=== PATIENT | female | born 1965 | race Caucasian/White ===

== ENCOUNTER 2024-06-14 08:58 | Outpatient (REF) | payer MEDICAID, SELFPAY ==
--- OUTSIDE RECORDS SUMMARY | 2024-06-14 09:37 | XMS_ITS | Clinical Summary ---
Author Organization [employer] Address [address] [facility] [address] [place] [address] Care Team Providers Care Horticulture Superintendent Name Role Phone Corina Perez MD Primary Care Provider [phone]- [phone] Allergies Active Allergy Reactions Criticality Noted Date Comments Prednisone 06/07/2024 hypotension Active Problems Problem Noted Date Diagnosed Date Other specified health status 06/07/2024 Overview (06/07/2024): -next comprehensive annual evaluation due after -eye care facilitated by -dental home encouraged 06/07/24 -josesito care proxy Assessment & Plan (06/07/2024 2:00 PM EDT): -next comprehensive annual evaluation due after -eye care facilitated by -dental home encouraged 06/07/24 -josesito care proxy Colon cancer screening 06/07/2024 Overview (06/07/2024): Moved from [place]. Had all medical care done there. Pt will bring records of previous colonoscopy. Assessment & Plan (06/07/2024 1:35 PM EDT): Moved from [place]. Had all medical care done there. Pt will bring records of previous colonoscopy. Breast cancer screening by mammogram 06/07/2024 Overview (06/07/2024): Moved from [place]. Had all medical care done there. Pt will bring records of previous mammogram's. -ordered updated mammogram today 06/07/24 Assessment & Plan (06/07/2024 1:36 PM EDT): Moved from [place]. Had all medical care done there. Pt will bring records of previous mammogram's. -ordered updated mammogram today 06/07/24 History of kidney stones 06/07/2024 Overview (06/07/2024): Reports 8 months ago she had a renal crisis and had a kidney stone removed at hospital in [place]. She has hx of kidney stones and another stone she had removed 10 years ago in [place]. Assessment & Plan (06/07/2024 1:46 PM EDT): Reports 8 months ago she had a renal crisis and had a kidney stone removed at hospital in [place]. She has hx of kidney stones and another stone she had removed 10 years ago in [place]. Papanicolaou smear for cervical cancer screening 06/07/2024 Overview (06/07/2024): Moved from [place]. Had all medical care done there. Pt will bring records of previous PAP smears. -will schedule for upcoming, updated PAP smear on 08/10/24 Assessment & Plan (06/07/2024 1:50 PM EDT): Moved from [place]. Had all medical care done there. Pt will bring records of previous PAP smears. -will schedule for upcoming, updated PAP smear on 08/10/24 Class 1 obesity due to exces s calories with body mass index (BMI) of 30.0 to 30.9 in adult 06/07/2024 Overview (06/07/2024): Pt moved from [place]. First time seeing a doctor in the [place]. -Ordered routine labs 06/07/24 Assessment & Plan (06/07/2024 1:45 PM EDT): Pt moved from [place]. First time seeing a doctor in the [place]. -Ordered routine labs 06/07/24 Dietary counseling 06/07/2024 Assessment & Plan (06/07/2024 1:46 PM EDT): Exercise Recommendations: At least 150 minutes of moderate-intensity physical activity per week, or an equivalent combination of moderate- and vigorous-intensity activity. Exercise counseling 06/07/2024 Assessment & Plan (06/07/2024 1:46 PM EDT): Dietary Recommendations: Fruits, vegetables, whole grains, protein foods, and fat-free or low-fat dairy products are healthy choices. Eat different types of protein foods in your diet. This can include seafood, lean meats, poultry, beans, peas, lentils, nuts, seeds, soy products, and eggs. Limit foods and beverages higher in added sugars, saturated fat, and sodium. Encounters Date Type Department Care Team Description 06/08/2024 Telephone [facility] [address] [place] [id number] Corina Perez MD 06/07/2024 1:20 PM EDT Office Visit [facility] [address] [place] [id number] Corina Perez MD History of kidney stones (Primary Dx); Colon cancer screening; Breast cancer screening by mammogram; Papanicolaou smear for cervical cancer screening; Class 1 obesity due to excess calories with body mass index (BMI) of 30.0 to 30.9 in adult, unspecified whether serious comorbidity present; Dietary counseling; Exercise counseling; Routine screening for STI (sexually transmitted infection); Other specified health status 06/07/2024 Telephone [facility] [address] [place] [id number] Farzaneh Alatorre RN EMR search- [facility] OFF[facility] 06/07/2024 Travel from Last 3 Months Social History Tobacco Use Types Packs/Day Years Used Date Smoking Tobacco: Never Passive Smoke Exposure: Never Smokeless Tobacco: Never Tobacco Cessation:Counseling Given: Not Answered Comments Unknown Sex and Gender Information Value Date Recorded Sex Assigned at Female 06/07/2024 12:55 PM EDT Legal Sex Female 12:39 PM EDT Gender Identity Female 06/07/2024 12:55 PM EDT Sexual Orientation Straight 06/07/2024 12 :55 PM EDT Last Filed Vital Signs Vital Sign Reading Time Taken Comments Blood Pressure 134/88 06/07/2024 1:01 PM EDT Pulse 76 06/07/2024 1:01 PM EDT Temperature 36.7 ??C (98 ??F) 06/07/2024 1:01 PM EDT Respiratory Rate 16 06/07/2024 1:01 PM EDT Oxygen Saturation - - Inhaled Oxygen Concentration - - Weight 80.3 kg (177 lb) 06/07/2024 1:01 PM EDT Height 162 cm (5' 3.78 ) 06/07/2024 1:01 PM EDT Body Mass Index 30.59 06/07/2024 1:01 PM EDT Plan of Treatment Upcoming Encounters Date Type Department Care Team (Late st Contact Info) Description 08/10/2024 11:00 AM EDT Procedure Visit [facility] [address] [place], [place] [phone] Corina Perez MD [address] [place], [place] [phone] Health Maintenance Due Date Last Done Comments CT Colonography 1964 Colonoscopy 1964 Colorectal Cancer Screening 1964 Depression Screening 1964 FIT DNA/Cologuard 1964 FIT 1964 FOBT 1964 HIV Screening 1964 Lipid Panel 1964 SDOH Screening 1964 Sigmoidoscopy 1964 Alcohol/Substance Use Screening 1976 Hepatitis C Screening 1982 DTaP/Tdap/Td Vaccines (1 - Tdap) 12/09/1983 Hepatitis B Vaccines (1 of 3 - 19+ 3-dose series) 12/09/1983 Pap Smear 1985 Cervical Cancer Screening 1994 HPV/Cotest 1994 Pneumococcal Vaccine: 50+ Years (1 of 1 - PCV) 2014 Zoster Vaccines (1 of 2) 2014 COVID-19 Vaccine ( - 2023-2 5 season) 2023 Influenza Vaccine (#1) 2023 Tobacco Screening 06/07/2025 06/07/2024 Mammogram 06/07/2026 06/07/2024, 04/23/2021 RSV Patients and Patients Aged 60 years or older (1 - 1-dose 75+ series) 12/09/2039 HIB Vaccines Aged Out No longer eligi ble based on patient's age to complete this topic HPV Vaccines Aged Out No longer eligi ble based on patient's age to complete this topic Hepatitis A Vaccines Aged Out No long er eligible based on patient's age to complete this topic IPV Vaccines Aged Out No longer eligi ble based on patient's age to complete this topic Meningococcal Vaccine Aged Out No radha tiffanie eligible based on patient's age to complete this topic RSV under 20 months Aged Out No longe r eligible based on patient's age to complete this topic Rotavirus Vaccines Aged Out No longer eligible based on patient's age to complete this topic Procedures Procedure Name Priority Date/Time Associated Diagnosis Comments POCT URINALYSIS DIPSTICK Routine 06/07/2024 2:19 PM EDT History of kidney stones BI MAMMOGRAM SCREENING TOMOSYNTHESIS BILATERAL Routine 06/07/2024 Breast cancer screening by mammogram from Last 3 Months Results * POCT urinalysis dipstick manually resulted (06/07/2024 2:19 PM EDT) Color, UA Yellow Clarity, UA Cloudy Glucose, UA Negative Bilirubin, UA Negative Ketones, UA Negative Spec Grav, UA 1.020 Blood, UA Negative Negative, None Detected pH, UA 6.0 Protein, UA Negative Urobilinogen, UA 0.2 Leukocytes, UA Trace Negative, Rare, Trace Nitrite, UA Negative Negative, None Detected Appearance, UA yellow QC Media Lot # [id number] Lot# Expiration Date , Urine 06/07/2024 2:19 PM EDT us Corina Perez MD POINT OF CARE TEST ENTER/E DIT ORDERABLES Final Result * BI Mammogram Screening Tomosynthesis Bilateral (06/07/2024) Anatomical Region Laterality Modality Breast Bilateral Mammography us Corina Perez MD IMG BI PROCEDURES Final Re sult from Last 3 Months Insurance A SARAH Nicholas [id number] [employer] HSN FULL Care Teams Horticulture Superintendent Relationship Specialty Start Date End Date Corina Perez MD [address] [place] [id number] PCP - General Family Medicine 06/07/24
[2024-06-14 11:38] LABS: MANUAL DIFF FLAG NO
[2024-06-14 12:04] LABS: Basophils Percent Auto 0.4 % (0-2); Eosinophils Absolute Auto 0.2 X10*3/uL (0.0-0.4); Eosinophils Percent Auto 2.8 % (0-4); Hematocrit 44.8 % (37.0-47.0); Hemoglobin 14.1 g/dl (12.0-16.0); Imm Gran Abs Auto 0.01 X10*3/uL (0.00-0.03); Imm Gran Pct Auto 0.1 % (0.0-0.4); Lymphocytes Absolute Auto 3.4 X10*3/uL (1.2-4.9); Mean Corpuscular HGB Conc 31.5 g/dl (31.0-35.0); Mean Corpuscular Hemoglobin 28.8 pg (27.0-33.0); Mean Corpuscular Volume 91.6 fL (80.0-98.0); Mean Platelet Volume 11.4 fL (9.4-12.3); Monocytes Absolute Auto 0.4 X10*3/uL (0.1-1.2); Monocytes Percent Auto 5.8 % (2-11); Neutrophils Absolute Auto 3.2 x10*3/uL (2.0-8.3); Neutrophils Percent Auto 43.9 % (45-73); Platelet Count 160 X10*3/uL (160-400); Red Blood Count 4.89 X10*6/uL (4.20-5.50); White Blood Count 7.2 X10*3/uL (4.8-10.8)
[2024-06-14 12:12] LABS: Alanine Aminotransferase 19 U/L (0-31); Albumin Level 4.4 g/dL (3.5-5.0); Alkaline Phosphatase 104 U/L (39-117); Anion Gap 12 (12-20); Aspartate Amino Transferase 26 U/L (5-31); Bilirubin Direct 0.2 mg/dL (0.0-0.5); Bilirubin Total 0.5 mg/dL (0.0-1.0); Blood Urea Nitrogen 26 mg/dL (9-16); Calcium 9.7 mg/dL (8.4-10.2); Carbon Dioxide 29 mmol/L (22-29); Chloride 108 mmol/L (96-108); Cholesterol 229 mg/dL (<200); Estimated Glomerular Filt Rate > 60; Glucose Random 95 mg/dL (60-115); HDL Cholesterol 56 mg/dL (>40); LDL Cholesterol Calculated 149 mg/dL (<100); Potassium 5.3 mmol/L (3.3-5.1); Sodium 144 mmol/L (135-145); Total Protein 7.4 g/dL (6.5-8.0); Triglycerides 121 mg/dL (<150)
[2024-06-14 12:20] LABS: TSH reflex Free T4 0.96 uIU/mL (0.32-4.0); Vitamin D 25-OH Total 42.9 ng/mL (>30)
[2024-06-14 12:26] LABS: Syphilis Screen Nonreactive (Nonreactive)
[2024-06-14 12:27] LABS: HIV AB/AG Nonreactive (Nonreactive); HIV Num 1 0.06 S/CO (0.00-0.99); ~HepC Num1 0.15 S/CO (0.00-0.79); ~Hepatitis C Antibody Nonreactive (Nonreactive)
== END 2024-06-14 08:59 | disposition home or self-care (01) ==
LOC: HO.HHCL 08:58
PROVIDERS: Visit Provider Family Medicine
DX: E66.811 Obesity, class 1 (principal); Z71.3 Dietary counseling and surveillance; E66.09 Other obesity due to excess calories; Z68.30 Body mass index [BMI] 30.0-30.9, adult; Z11.3 Encounter for screening for infections with a predominantly sexual mode of transmission
CPT/HCPCS: 36415; 80048; 80061; 80076; 82306; 84443; 85025; 86780; 86803; 87389

== ENCOUNTER 2024-07-26 09:19 | Outpatient (REF) | payer MEDICAID, SELFPAY ==
--- OUTSIDE RECORDS SUMMARY | 2024-07-26 09:33 | XMS_ITS | Encounter Summary ---
Author Organization [employer] Address [address] [facility] [address]t [place] [address] Care Team Providers Care Manager Personnel Selection Name Role Phone Corina Perez MD Primary Care Provider +1- [phone] Reason for Visit * Reason Onset Date Comments Results 06/14/2024 Encounter Details Date Type Department Care Team (Late st Contact Info) Description 06/14/2024 Telephone [facility] [address] [place], [place] [phone] Corina Perez MD [address] [place], [place] [phone] Results Social History Tobacco Use Types Packs/Day Years Used Date Smoking Tobacco: Never Passive Smoke Exposure: Never Smokeless Tobacco: Never Comments Unknown Sex and Gender Information Value Date Recorded Sex Assigned at Female 06/07/2024 12:55 PM EDT Legal Sex Female 12:39 PM EDT Gender Identity Female 06/07/2024 12:55 PM EDT Sexual Orientation Straight 06/07/2024 12 :55 PM EDT documented as of this encounter Miscellaneous Notes * Addendum Note - Brittnee Montana RN - 07/25/2024 10:00 AM EDTAddended by: BRITTNEE MONTANA on: 07/25/2024 10:00 AM Modules accepted: Orders * Telephone Encounter - Olivia Muse RN - 06/14/2024 3:51 PM EDT TC placed to pt to inform of message below regarding slightly elevated potassium and cholesterol. 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 Pt was able to state those instructions back and will also work on lifestyle recommendations to help lower cholesterol. Pt to have repeat labs done in six weeks and advised that they are to be done fasting. PCP MESSAGE Please let Ms. Logan know her labs were good but potassium was a bit high and cholesterol a bithigh. I sent med to take for 2 days to bring potassium down. Advise low chol diet . We can recheck potassium and chol in 6 weeks fasting. Thank you. Pt speaks Cypriot. * Telephone Encounter - Corina Perez MD - 06/14/2024 3:12 PM EDT Please let Ms. Logan know her labs were good but potassium was a bit high and cholesterol a bithigh. I sent med to take for 2 days to bring potassium down. Advise low chol diet . We can recheck potassium and chol in 6 weeks fasting. Thank you. Pt speaks Cypriot. documented in this encounter Plan of Treatment Upcoming Encounters Date Type Department Care Team (Late st Contact Info) Description 08/10/2024 11:00 AM EDT Procedure Visit [facility] [address] [place] [id number] Corina Perez MD [address] [place] [address] Scheduled Orders Name Type Priority Associated Diagnoses Orde r Schedule Lipid Panel, Standard Lab Routine Elevated cholesterol Expected: 07/25/2024 (Approximate), Expires: 07/25/2025 Potassium Lab Routine Hyperkalemia Expected: 07/25/2024, Expires: 07/25/2025 documented as of this encounter Visit Diagnoses Diagnosis Hyperkalemia Hyperpotassemia Elevated cholesterol Pure hypercholesterolemia documented in this encounter Care Teams Manager Personnel Selection Relationship Specialty Start Date End Date Corina Perez MD [address] [place] [id number] PCP - General Family Medicine 06/07/24 documented as of this encounter
--- OUTSIDE RECORDS SUMMARY | 2024-07-26 09:33 | XMS_ITS | Clinical Summary ---
Author Organization [employer] Address [address] [facility] [address] [place] [address] Care Team Providers Care Hand Bookbinder Name Role Phone Corina Perez MD Primary Care Provider [phone] Allergies Active Allergy Reactions Criticality Noted Date Comments Prednisone 06/07/2024 hypotension Medications sodium polystyrene sulfonate (Kayexalate) powderIndications :Hyperkalemia Take 15 grams by mouth daily for two days 30 g 06/14/2024 Active Active Problems Problem Noted Date Diagnosed Date Other specified health status 06/07/2024 Overview (06/07/2024): -next comprehensive annual evaluation due after -eye care facilitated by -dental home encouraged 06/07/24 -josesito care proxy Assessment & Plan (06/07/2024 2:00 PM EDT): -next comprehensive annual evaluation due after -eye care facilitated by -dental home encouraged 06/07/24 -josesito care proxy Colon cancer screening 06/07/2024 Overview (06/07/2024): Moved from [place]. Had all medical care done there. Pt will bring records of previous colonoscopy. Assessment & Plan (06/07/2024 1:35 PM EDT): Moved from [place]. Had all medical care done there. Pt will bring records of previous colonoscopy. Breast cancer screening by mammogram 06/07/2024 Overview (06/07/2024): Moved from [place]. Had all medical care done there. Pt will bring records of previous mammogram's. -ordered updated mammogram today 06/07/24 Assessment & Plan (06/07/2024 1:36 PM EDT): Moved from [place]. Had all medical care done there. Pt will bring records of previous mammogram's. -ordered updated mammogram today 06/07/24 History of kidney stones 06/07/2024 Overview (06/07/2024): Reports 8 months ago she had a renal crisis and had a kidney stone removed at hospital in [place]. She has hx of kidney stones and another stone she had removed 10 years ago in [place]. Assessment & Plan (06/07/2024 1:46 PM EDT): Reports 8 months ago she had a renal crisis and had a kidney stone removed at hospital in [place]. She has hx of kidney stones and another stone she had removed 10 years ago in [place]. Papanicolaou smear for cervical cancer screening 06/07/2024 Overview (06/07/2024): Moved from [place]. Had all medical care done there. Pt will bring records of previous PAP smears. -will schedule for upcoming, updated PAP smear on 08/10/24 Assessment & Plan (06/07/2024 1:50 PM EDT): Moved from [place]. Had all medical care done there. Pt will bring records of previous PAP smears. -will schedule for upcoming, updated PAP smear on 08/10/24 Class 1 obesity due to exces s calories with body mass index (BMI) of 30.0 to 30.9 in adult 06/07/2024 Overview (06/07/2024): Pt moved from [place]. First time seeing a doctor in the [place]. -Ordered routine labs 06/07/24 Assessment & Plan (06/07/2024 1:45 PM EDT): Pt moved from [place]. First time seeing a doctor in the [...] Encounters Date Type Department Care Team Description 06/14/2024 Telephone [facility] [address] [place] [phone] Corina Perez MD Results 06/14/2024 Orders Only [facility] [address] [address] Corina Perez MD Hyperkalemia (Primary Dx) 06/08/2024 Telephone [facility] [address] [place] [phone] Corina Perez MD 06/07/2024 1:20 PM EDT Office Visit [facility] [address] [address] Corina Perez MD History of kidney stones [...] 06/07/2024 Telephone [facility] [address] [place] [phone] Farzaneh Alatorre RN EMR search- [employer] 06/07/2024 Travel from Last 3 Months Social [...] Procedure Visit [facility] [address] [place] [address] Corina Perez MD [address] [place] [address] Health Maintenance Due Date Last Done Comments CT Colonography 1964 Depression Screening 1964 FIT DNA/Cologuard 1964 FIT 1964 FOBT 1964 SDOH Screening 1964 Sigmoidoscopy 1964 Disability Screening 1964 Alcohol/Substance Use Screening 1976 DTaP/Tdap/Td Vaccines (1 - Tdap) 12/09/1983 Hepatitis B Vaccines (1 of 3 - 19+ 3-dose series) 12/09/1983 Pap Smear 1985 Cervical Cancer Screening 1994 HPV/Cotest 1994 Pneumococcal Vaccine: 50+ Years (1 of 1 - PCV) 2014 Zoster Vaccines (1 of 2) 2014 COVID-19 Vaccine (1 - 2023-2 5 season) 2023 Influenza Vaccine (#1) 2023 Tobacco Screening 06/14/2025 06/14/2024 Mammogram 06/07/2026 06/07/2024, 04/23/2021 Colonoscopy 10/29/2027 10/28/2017 Colorectal Cancer Screening 10/29/2027 Lipid Panel 06/14/2029 06/14/2024 RSV Patients and Patients Aged 60 years or older (1 - 1-dose 75+ series) 12/09/2039 HIV Screening Completed 06/14/2024 Hepatitis C Screening Completed 06/14/2024 HIB Vaccines Aged Out No longer eligi [...] patient's age to complete this topic Meningococcal B Vaccine Aged Out No l onger eligible based on patient's age to complete [...] Procedure Name Priority Date/Time Associated Diagnosis Comments HEPATITIS C AB W/REFL TO HCV RNA, QN, PCR Routine 06/14/2024 9:05 AM EDT Routine screening for STI (sexually transmitted infection) SYPHILIS SCREEN Routine 06/14/2024 9:05 AM EDT Routine screening for STI (sexually transmitted infection) HIV 1/2 ANTIGEN/ANTIBODY, FOURTH GENERATION W/RFL Routine 06/14/2024 9:05 AM EDT Routine screening for STI (sexually transmitted infection) VITAMIN D,25-OH,TOTAL,IA Routine 06/14/2024 9:05 AM EDT Dietary counseling CBC WITH AUTO DIFFERENTIAL Routine 06/14/2024 9:05 AM EDT Class 1 obesity due to excess calories with body mass index (BMI) of 30.0 to 30.9 in adult, unspecified whether serious comorbidity present TSH W/REFLEX TO FT4 Routine 06/14/2024 9 :05 AM EDT Class 1 obesity due to excess calories with body mass index (BMI) of 30.0 to 30.9 in adult, unspecified whether serious comorbidity present BASIC METABOLIC PANEL Routine 06/14/2024 9:05 AM EDT Class 1 obesity due to excess calories with body mass index (BMI) of 30.0 to 30.9 in adult, unspecified whether serious comorbidity present LIPID PANEL, STANDARD Routine 06/14/2024 9:05 AM EDT Class 1 obesity due to excess calories with body mass index (BMI) of 30.0 to 30.9 in adult, unspecified whether serious comorbidity present HEPATIC FUNCTION PANEL Routine 9:05 AM EDT Class 1 obesity due to excess calories with body mass index (BMI) of 30.0 to 30.9 in adult, unspecified whether serious comorbidity present POCT URINALYSIS DIPSTICK Routine 06/07/2024 2:19 PM EDT History of kidney stones BI MAMMOGRAM SCREENING TOMOSYNTHESIS BILATERAL Routine 06/07/2024 Breast cancer screening by mammogram HM COLONOSCOPY Routine 10/28/2017 from Last 3 Months or Most Recently Relevant to Health Maintenance Results * Syphilis Screen (06/14/2024 9:05 AM EDT) Syphilis Screen Nonreactive Nonreactive [facility] Blood Venous blood specimen / Unknown 06/14/2024 9:05 AM EDT 06/14/2024 11:34 AM EDT us Corina Perez MD LAB BLOOD ORDERABLES Final Result [facility] [address] [place] [phone] * Vitamin D, 25-Hydroxy, Total, Immunoassay (06/14/2024 9:05 AM EDT) Vitamin D 25-OH Total 42.9 >30 ng/mL [facility] Comment: Health Based Reference Values*< 20 ??ng/mL ??Kckgvtskr84-49 ng/mL ??Insufficient> 30 ??ng/mL ??Sufficient*Uma LIPSCOMB. N Engl J Med. 2007;[id number] is no well-established upper level of normal vitamin Dlevels. Some laboratories use 50 ng/mL as an upper limit ofnormal. However, toxicity is patient-dependent and may occurat any level. Careful correlation with the patient'spresentation is necessary and, if there is concern forvitamin D toxicity, treatment should be consideredirrespective of the serum level.Care must be taken in interpreting Vitamin D results fromdifferent laboratories and methodologies. ??Published datademonstrated that results from patients undergoinghemodialysis may show a negative bias when tested withvarious automated 25-OH vitamin D assays when compared toLC- MS/MS.When testing samples from patients whose predominant form ofVitamin D is Vitamin D2, such as patients receiving VitaminD2 supplementation, results that are subtherapeutic shouldbe confirmed with another method such as LC-MS/MS. Blood 06/14/2024 9:05 AM EDT 06/14/2024 11:34 AM EDT Corina Perez MD LAB BLOOD ORDERABLES Final Result [facility] [address] [place] [phone] * TSH with Reflex to Free T4 (06/14/2024 9:05 AM EDT) TSH reflex Free T4 0.96 0.32 - 4.0 uIU/mL [facility] Blood 06/14/2024 9:05 AM EDT 06/14/2024 11:34 AM EDT us Corina Perez MD LAB BLOOD ORDERABLES Final Result [facility] [address] [place] [phone] * (ABNORMAL) CBC auto differential (06/14/2024 9:05 AM EDT) White Blood Count 7.2 4.8 - 10.8 X10*3/uL [facility] Red Blood Count 4.89 4.20 - 5.50 X10*6/uL [facility] Hemoglobin 14.1 12.0 - 16.0 g/dl [facility] Hematocrit 44.8 37.0 - 47.0 % [facility] Mean Corpuscular Volume 91.6 80.0 - 98.0 fL [facility] Mean Corpuscular Hemoglobin 28.8 27.0 - 33.0 pg [facility] Mean Corpuscular HGB Conc 31.5 31.0 - 35.0 g/dl [facility] Red Cell Distribution Width 13.0 11.0 - 16.0 % [facility] Platelet Count 160 160 - 400 X10*3/uL [facility] Mean Platelet Volume 11.4 9.4 - 12.3 fL [facility] Neutrophils Percent Auto 43.9(L) 45 - 73 % [facility] Imm Gran Pct Auto 0.1 0.0 - 0.4 % [facility] Lymphocytes Percent Auto 47.0(H) 20 - 40 % [facility] Monocytes Percent Auto 5.8 2 - 11 % [facility] Eosinophils Percent Auto 2.8 0 - 4 % [facility] Basophils Percent Auto 0.4 0 - 2 % [facility] NRBC Pct Auto 0.0 0.0 - 0.2 /100WBC [facility] Neutrophils Absolute Auto 3.2 2.0 - 8.3 x10*3/uL [facility] Imm Gran Abs Auto 0.01 0.00 - 0.03 X10*3/uL [facility] Lymphocytes Absolute Auto 3.4 1.2 - 4.9 X10*3/uL [facility] Monocytes Absolute Auto 0.4 0.1 - 1.2 X10*3/uL [facility] Eosinophils Absolute Auto 0.2 0.0 - 0.4 X10*3/uL [facility] Basophils Absolute Auto 0.0 0.0 - 0.2 X10*3/uL [facility] NRBC Abs Auto 0.000 0.0 - 0.012 X10*3/uL [facility] Blood Venous blood specimen / Unknown 06/14/2024 9:05 AM EDT 06/14/2024 11:34 AM EDT Corina Perez MD LAB BLOOD ORDERABLES Final Result Performing Organization Address [facility]/ZIP Co de Phone Number [facility] [address] [place] [phone] * Hepatitis C Antibody with Reflex to HCV, RNA, Quantitative, Real-Time PCR (06/14/2024 9:05 AM EDT) Hepatitis C Antibody Nonreactive Nonreactive [facility] Comment:Antibodies to HCV no t detected; does not exclude early acuteHCV infection. Blood Venous blood specimen / Unknown 06/14/2024 9:05 AM EDT 06/14/2024 11:34 AM EDT Corina Perez MD LAB BLOOD ORDERABLES Final Result Performing Organization Address [facility] Co de Phone Number [facility] [address] [place] [phone] * HIV-1/2 Antigen and Antibodies, Fourth Generation, with Reflexes (06/14/2024 9:05 AM EDT) HIV AB/AG Nonreactive Nonreactive [facility] Comment:HIV-1 p24 Ag and/or HIV-1/HIV-2 Ab not detected.A test result that is nonreactive does not exclude thepossibility of exposure to or infection with HIV-1 and/orHIV-2. Nonreactive results in this assay for individualswith prior exposure to HIV-1 and/or HIV-2 may be due toantigen and antibody levels that are below the limit ofdetection of this assay.The [facility] [employer] HIV Ag/Ab Combo assay result andsupplemental assay results should be interpreted inconjunction with the patient's clinical presentation,history and other laboratory results. If the results areinconsistent with clinical evidence, additional testing issuggested to confirm the result. Blood Venous blood specimen / Unknown 06/14/2024 9:05 AM EDT 06/14/2024 11:34 AM EDT Corina Perez MD LAB BLOOD ORDERABLES Final Result Performing Organization Address [facility] Co de Phone Number [facility] [address] [place] [phone] * Hepatic Function Panel (06/14/2024 9:05 AM EDT) Bilirubin, Total 0.5 0.0 - 1.0 mg/dL [facility] Bilirubin, Direct 0.2 0.0 - 0.5 mg/dL [facility] Aspartate Amino Transferase 26 5 - 31 U/L [facility] Alanine Aminotransferase 19 0 - 31 U/L [facility] Total Protein 7.4 6.5 - 8.0 g/dL [facility] Albumin Level 4.4 3.5 - 5.0 g/dL [facility] Alkaline Phosphatase 104 39 - 117 U/L [facility] Blood Venous blood specimen / Unknown 06/14/2024 9:05 AM EDT 06/14/2024 11:34 AM EDT Corina Perez MD LAB BLOOD ORDERABLES Final Result Performing Organization Address [facility]/ZIP Co de Phone Number [facility] [address] [place] [phone] * (ABNORMAL) Lipid Panel, Standard (06/14/2024 9:05 AM EDT) Triglycerides 121 <150 mg/dL [facility] Comment:Desirable Triglyceri de: less than 150 mg/dLBorderline High Triglyceride 150-199 mg/dLHigh Triglyceride: 200-499 mg/dLVery High Triglyceride: greater than or equal to 5OO mg/dL Cholesterol 229(H) <200 mg/dL [facility] Comment:Desirable Cholestero l: less than 200 mg/dLBorderline High Cholesterol: 200-239 mg/dLHigh Cholesterol: greater than 239 mg/dL LDL Cholesterol Calculated 149(H) <100 mg/dL [facility] Comment:Desirable LDL: less than 100 mg/dLNear Optimal/Above Optimal LDL: 110- 129 mg/dLBorderline High LDL: 130-159 mg/dLHigh LDL: 160-189 mg/dLVery High LDL: greater than or equal to 190 mg/dL HDL Cholesterol 56 >40 mg/dL [facility] Comment:Desirable HDL: great er than 40 mg/dL Note: This HDL assay may give artificially low results in patients with liver disease. Blood Venous blood specimen / Unknown 06/14/2024 9:05 AM EDT 06/14/2024 11:34 AM EDT us Corina Perez MD LAB BLOOD ORDERABLES Final Result [facility] [address] [place] [phone] * (ABNORMAL) Basic Metabolic Panel (06/14/2024 9:05 AM EDT) Sodium 144 135 - 145 mmol/L [facility] Potassium 5.3(H) 3.3 - 5.1 mmol/L [facility] Chloride 108 96 - 108 mmol/L [facility] Carbon Dioxide 29 22 - 29 mmol/L [facility] Anion Gap 12 12 - 20 [facility] Urea Nitrogen (BUN) 26(H) 9 - 16 mg/dL [facility] Creatinine, Serum 0.73 0.5 - 1.4 mg/dL [facility] Estimated Glomerular Filt Rate >60 [facility] Comment:Chronic Kidney Disea se: Estimated GFR < 60 mL/min/[id number] Kidney Disease: Estimated GFR < 15 mL/min/1.73m2 Glucose 95 60 - 115 mg/dL [facility] Calcium 9.7 8.4 - 10.2 mg/dL [facility] Blood Venous blood specimen / Unknown 06/14/2024 9:05 AM EDT 06/14/2024 11:34 AM EDT Corina Perez MD LAB BLOOD ORDERABLES Final Result [facility] [address] [place] [phone] * POCT urinalysis dipstick manually resulted (06/07/2024 [...] Media Lot # [id number] Lot# Expiration Date Urine 06/07/2024 2:19 PM EDT us Corina Perez MD POINT OF CARE TEST ENTER/E DIT ORDERABLES Final Result * BI Mammogram Screening Tomosynthesis Bilateral (06/07/2024) Anatomical Region Laterality Modality Breast Bilateral Mammography us Corina Perez MD IMG BI PROCEDURES Final Re sult * Hm Colonoscopy (10/28/2017) Colonoscopy Normal Normal Comment:Normal in [place], co py in chart under media us Historical Provider HEALTH MAINTENANCE Final Result from Last 3 Months or Most Recently Relevant to Health Maintenance Insurance [employer] F[employer] Care Teams Hand Bookbinder Relationship Specialty Start Date End Date Dillon, MD Corina [address] [place] [phone] PCP - General Family Medicine 06/07/24
[2024-07-26 11:35] LABS: Cholesterol 230 mg/dL (<200); HDL Cholesterol 53 mg/dL (>40); LDL Cholesterol Calculated 151 mg/dL (<100); Potassium 4.6 mmol/L (3.3-5.1); Triglycerides 131 mg/dL (<150)
== END 2024-07-26 09:20 | disposition home or self-care (01) ==
LOC: HO.HHCL 09:19
PROVIDERS: Visit Provider Family Medicine
DX: E78.00 Pure hypercholesterolemia, unspecified (principal); E87.5 Hyperkalemia
CPT/HCPCS: 36415; 80061; 84132

== ENCOUNTER 2024-08-02 14:06 | Outpatient (REF) | payer MEDICAID, SELFPAY ==
--- OUTSIDE RECORDS SUMMARY | 2024-08-02 14:18 | XMS_ITS | Clinical Summary ---
Author Organization [employer] Address [address] [facility] [address] [place] [address] Care Team Providers Care Risk Compliance Manager Name Role Phone Corina Perez MD Primary Care Provider [phone] Allergies Active Allergy Reactions Criticality Noted Date [...] cancer screening 06/07/2024 Overview (06/07/2024): Moved from [place]. Had all medical care done there. Pt will bring records of previous colonoscopy. Assessment & Plan (06/07/2024 1:35 PM EDT): Moved from [place]. Had all medical care done there. Pt will bring records of previous colonoscopy. Breast cancer screening by mammogram 06/07/2024 Overview (06/07/2024): Moved from [place]. Had all medical care done there. Pt will bring records of previous mammogram's. -ordered updated mammogram today 06/07/24 Assessment & Plan (06/07/2024 1:36 PM EDT): Moved from [place]. Had all medical care done there. Pt will bring records of previous mammogram's. -ordered updated mammogram today 06/07/24 History of kidney stones 06/07/2024 Overview (06/07/2024): Reports 8 months ago she had a renal crisis and had a kidney stone removed at hospital in [place]. She has hx of kidney stones and another stone she had removed 10 years ago in [place]. Assessment & Plan (06/07/2024 1:46 PM EDT): Reports 8 months ago she had a renal crisis and had a kidney stone removed at hospital in [place]. She has hx of kidney stones and another stone she had removed 10 years ago in [place]. Papanicolaou smear for cervical cancer screening 06/07/2024 Overview (06/07/2024): Moved from [place]. Had all medical care done there. Pt will bring records of previous PAP smears. -will schedule for upcoming, updated PAP smear on 08/10/24 Assessment & Plan (06/07/2024 1:50 PM EDT): Moved from [place]. Had all medical care done there. Pt will bring records of previous PAP smears. -will schedule for upcoming, updated PAP smear on 08/10/24 Class 1 obesity due to exces s calories with body mass index (BMI) of 30.0 to 30.9 in adult 06/07/2024 Overview (06/07/2024): Pt moved from [place]. First time seeing a doctor in the [place]. -Ordered routine labs 06/07/24 Assessment & Plan (06/07/2024 1:45 PM EDT): Pt moved from [place]. First time seeing a doctor in the [...] Type Department Care Team Description 06/14/2024 Telephone [facility] [address] [place] [phone] Corina Perez MD Results 06/14/2024 Orders Only [facility] [address] [address] Corina Perez MD Hyperkalemia (Primary Dx) 06/08/2024 Telephone [facility] [address] [place] [phone] Corina Perez MD 06/07/2024 1:20 PM EDT Office Visit [facility] [address] [phone] Corina Perez MD History of kidney stones (Primary Dx); Colon cancer screening; Breast cancer screening by mammogram; Papanicolaou smear for cervical cancer screening; Class 1 obesity due to excess calories with body mass index (BMI) of 30.0 to 30.9 in adult, unspecified whether serious comorbidity present; Dietary counseling; Exercise counseling; Routine screening for STI (sexually transmitted infection); Other specified health status 06/07/2024 Telephone [facility] [address] [place] [phone] Farzaneh Alatorre RN EMR search- [employer] 06/07/2024 Travel from Last 3 Months Social [...] Description 08/10/2024 11:00 AM EDT Procedure Visit [facility] [address] [place] [address] Corina Perez MD [address] [place] [address] Health Maintenance Due Date Last Done Comments [...] 10/28/2017 Colorectal Cancer Screening 10/29/2027 Lipid Panel 07/26/2029 07/26/2024, 06/14/2024 RSV Patients and Patients Aged 60 [...] Procedure Name Priority Date/Time Associated Diagnosis Comments POTASSIUM Routine 07/26/2024 9:21 AM EDT Hyperkalemia LIPID PANEL, STANDARD Routine 07/26/2024 9:21 AM EDT Elevated cholesterol HEPATITIS C AB W/REFL TO HCV RNA, [...] Recently Relevant to Health Maintenance Results * Potassium (07/26/2024 9:21 AM EDT) Potassium 4.6 3.3 - 5.1 mmol/L [facility] Blood Venous blood specimen / Unknown 07/26/2024 9:21 AM EDT 07/26/2024 11:04 AM EDT Corina Perez MD LAB BLOOD ORDERABLES Final Result Performing Organization Address City/[facility]/ZIP Co de Phone Number [facility] [address] [place] [address] [phone] * (ABNORMAL) Lipid Panel, Standard (07/26/2024 9:21 AM EDT) Only the most recent of2 resultswithin the time period is included. Triglycerides 131 <150 mg/dL [facility] Comment:Desirable Triglyceri de: less than 150 mg/dLBorderline High Triglyceride 150-199 mg/dLHigh Triglyceride: 200-499 mg/dLVery High Triglyceride: greater than or equal to 5OO mg/dL Cholesterol 230(H) <200 mg/dL [facility] Comment:Desirable Cholestero l: less than 200 mg/dLBorderline High Cholesterol: 200-239 mg/dLHigh Cholesterol: greater than 239 mg/dL LDL Cholesterol Calculated 151(H) <100 mg/dL [facility] Comment:Desirable LDL: less than 100 mg/dLNear Optimal/Above Optimal LDL: 110- 129 mg/dLBorderline High LDL: 130-159 mg/dLHigh LDL: 160-189 mg/dLVery High LDL: greater than or equal to 190 mg/dL HDL Cholesterol 53 >40 mg/dL [facility] Comment:Desirable HDL: great er than 40 mg/dL Note: This HDL assay may give artificially low results in patients with liver disease. Blood Venous blood specimen / Unknown 07/26/2024 9:21 AM EDT 07/26/2024 11:04 AM EDT Corina Perez MD LAB BLOOD ORDERABLES Final Result Performing Organization Address City/[facility]/ZIP Co de Phone Number [facility] [address] [place] [address] [phone] * Syphilis Screen (06/14/2024 9:05 AM EDT) Syphilis Screen Nonreactive Nonreactive [facility] Blood Venous blood specimen / Unknown 06/14/2024 9:05 AM EDT 06/14/2024 11:34 AM EDT Corina Perez MD LAB BLOOD ORDERABLES Final Result Performing Organization Address [facility]/ZIP Co de Phone Number [facility] [address] [place] [phone] * Vitamin D, 25-Hydroxy, Total, Immunoassay (06/14/2024 9:05 AM EDT) Pathologist [facility] Vitamin D 25-OH Total 42.9 >30 ng/mL [facility] Comment: Health Based Reference Values*< 20 ??ng/mL ??[id number] ng/mL ??Insufficient> 30 ??ng/mL ??Sufficient*Uma LIPSCOMB. N [...] BLOOD ORDERABLES Final Result Performing Organization Address [facility] Co de Phone Number [facility] [address] [place] [phone] * TSH with Reflex to Free T4 (06/14/2024 9:05 AM EDT) Pathologist [facility] TSH reflex Free T4 0.96 0.32 - 4.0 uIU/mL [facility] Blood 06/14/2024 9:05 AM EDT 06/14/2024 11:34 AM EDT Corina Perez MD LAB BLOOD ORDERABLES Final Result [facility] [address] [place] [address] [phone] * (ABNORMAL) CBC auto differential (06/14/2024 9:05 AM EDT) Pathologist [facility] White Blood Count 7.2 4.8 - 10.8 X10*3/uL [facility] Red Blood Count 4.89 4.20 - 5.50 X10*6/uL [facility] Hemoglobin 14.1 12.0 - 16.0 g/dl [facility] Hematocrit 44.8 37.0 - 47.0 % [facility] Mean Corpuscular Volume 91.6 80.0 - 98.0 fL [facility] Mean Corpuscular Hemoglobin 28.8 27.0 - 33.0 pg [facility] Mean Corpuscular HGB Conc 31.5 31.0 - 35.0 g/dl [facility] Red Cell Distribution Width 13.0 11.0 - 16.0 % [facility] Platelet Count 160 160 - 400 X10*3/uL [facility] Mean Platelet Volume 11.4 9.4 - 12.3 fL [facility] Neutrophils Percent Auto 43.9(L) 45 - 73 % [facility] Imm Gran Pct Auto 0.1 0.0 - 0.4 % [facility] Lymphocytes Percent Auto 47.0(H) 20 - 40 % [facility] Monocytes Percent Auto 5.8 2 - 11 % [facility] Eosinophils Percent Auto 2.8 0 - 4 % [facility] Basophils Percent Auto 0.4 0 - 2 % [facility] NRBC Pct Auto 0.0 0.0 - 0.2 /100WBC [facility] Neutrophils Absolute Auto 3.2 2.0 - 8.3 x10*3/uL [facility] Imm Gran Abs Auto 0.01 0.00 - 0.03 X10*3/uL [facility] Lymphocytes Absolute Auto 3.4 1.2 - 4.9 X10*3/uL [facility] Monocytes Absolute Auto 0.4 0.1 - 1.2 X10*3/uL [facility] Eosinophils Absolute Auto 0.2 0.0 - 0.4 X10*3/uL [facility] Basophils Absolute Auto 0.0 0.0 - 0.2 X10*3/uL [facility] NRBC Abs Auto 0.000 0.0 - 0.012 X10*3/uL [facility] Blood Venous blood specimen / Unknown 06/14/2024 9:05 AM EDT 06/14/2024 11:34 AM EDT Corina Perez MD LAB BLOOD ORDERABLES Final Result Performing Organization Address [facility]/ZIP Co de Phone Number [facility] [address] [place] [phone] * Hepatitis C Antibody with Reflex to HCV, RNA, Quantitative, Real-Time PCR (06/14/2024 9:05 AM EDT) Hepatitis C Antibody Nonreactive Nonreactive [facility] Comment:Antibodies to HCV no t detected; does not exclude early acuteHCV infection. Blood Venous blood specimen / Unknown 06/14/2024 9:05 AM EDT 06/14/2024 11:34 AM EDT Corina Perez MD LAB BLOOD ORDERABLES Final Result [facility] [address] [place] [phone] * HIV-1/2 Antigen and Antibodies, Fourth Generation, with Reflexes (06/14/2024 9:05 AM EDT) HIV AB/AG Nonreactive Nonreactive [facility] Comment:HIV-1 p24 Ag and/or HIV-1/HIV-2 Ab not detected.A test result that is nonreactive does not exclude thepossibility of exposure to or infection with HIV-1 and/orHIV-2. Nonreactive results in this assay for individualswith prior exposure to HIV-1 and/or HIV-2 may be due toantigen and antibody levels that are below the limit ofdetection of this assay.The [employer] HIV Ag/Ab Combo assay result andsupplemental assay results should be interpreted inconjunction with the patient's clinical presentation,history and other laboratory results. If the results areinconsistent with clinical evidence, additional testing issuggested to confirm the result. Blood Venous blood specimen / Unknown 06/14/2024 9:05 AM EDT 06/14/2024 11:34 AM EDT Corina Perez MD LAB BLOOD ORDERABLES Final Result [facility] [address] [place] [phone] [phone] * Hepatic Function Panel (06/14/2024 9:05 AM EDT) Bilirubin, Total 0.5 0.0 - 1.0 mg/dL [facility] Bilirubin, Direct 0.2 0.0 - 0.5 mg/dL [facility] Aspartate Amino Transferase 26 5 - 31 U/L [facility] Alanine Aminotransferase 19 0 - 31 U/L [facility] Total Protein 7.4 6.5 - 8.0 g/dL [facility] Albumin Level 4.4 3.5 - 5.0 g/dL [facility] Alkaline Phosphatase 104 39 - 117 U/L [facility] Blood Venous blood specimen / Unknown 06/14/2024 9:05 AM EDT 06/14/2024 11:34 AM EDT Corina Perez MD LAB BLOOD ORDERABLES Final Result Performing Organization Address [facility]/ZIP Co de Phone Number [facility] [address] [place] [phone] * (ABNORMAL) Basic Metabolic Panel (06/14/2024 9:05 AM EDT) Sodium 144 135 - 145 mmol/L [facility] Potassium 5.3(H) 3.3 - 5.1 mmol/L [facility] Chloride 108 96 - 108 mmol/L [facility] Carbon Dioxide 29 22 - 29 mmol/L [facility] Anion Gap 12 12 - 20 [facility] Urea Nitrogen (BUN) 26(H) 9 - 16 mg/dL [facility] Creatinine, Serum 0.73 0.5 - 1.4 mg/dL [facility] Estimated Glomerular Filt Rate >60 [facility] Comment:Chronic Kidney Disea se: Estimated GFR < 60 mL/min/[id number] Kidney Disease: Estimated GFR < 15 mL/min/1.73m2 Glucose 95 60 - 115 mg/dL [facility] Calcium 9.7 8.4 - 10.2 mg/dL [facility] Blood Venous blood specimen / Unknown 06/14/2024 9:05 AM EDT 06/14/2024 11:34 AM EDT Corina Perez MD LAB BLOOD ORDERABLES Final Result Performing Organization Address [facility]/ZIP Co de Phone Number [facility] [address] [place] [phone] * POCT urinalysis dipstick manually resulted [...] Media Lot # [id number] Lot# Expiration Date [id number] Urine 06/07/2024 2:19 PM EDT Corina Perez MD POINT OF CARE TEST ENTER/E DIT ORDERABLES Final Result * BI Mammogram Screening Tomosynthesis Bilateral (06/07/2024) Anatomical Region Laterality Modality Breast Bilateral Mammography Corina Perez MD IMG BI PROCEDURES Final Re sult * Hm Colonoscopy (10/28/2017) Colonoscopy Normal Normal Comment:Normal in [place], co py in chart under media Historical Provider HEALTH MAINTENANCE Final Result from Last 3 Months or Most Recently Relevant to Health Maintenance Insurance [employer] [facility] Care Teams Risk Compliance Manager Relationship Specialty Start Date End Date Corina Perez MD [address] [place] [phone] PCP - General Family Medicine 06/07/24
== END 2024-08-02 14:07 | disposition home or self-care (01) ==
LOC: HO.MAMMO 14:06
PROVIDERS: PCP Family Medicine; Visit Provider Family Medicine
DX: Z12.31 Encounter for screening mammogram for malignant neoplasm of breast (principal)
CPT/HCPCS: 77063; 77067

== ENCOUNTER → 2024-08-02 14:45 | Outpatient (BNV) | payer MEDICAID, SELFPAY | PROVIDERS: PCP Family Medicine; Visit Provider Internal Medicine | DX: Z12.31 Encounter for screening mammogram for malignant neoplasm of breast (principal) | CPT/HCPCS: 77063; 77067 ==

== ENCOUNTER 2024-08-10 16:46 | Outpatient (REF) | payer MEDICAID, SELFPAY ==
[2024-08-14 22:29] LABS: C. trachomatis RNA TMA NOT DETECTED (NOT DETECTED); N. gonorrhoeae RNA TMA NOT DETECTED (NOT DETECTED); Trichomonas (NAAT) NOT DETECTED (NOT DETECTED)
[2024-08-15 13:42] LABS: HPV Genotype 16 Negative (Negative); HPV Genotype 18 Negative (Negative); HPV High Risk Negative (Negative)
== END 2024-08-10 16:47 | disposition home or self-care (01) ==
LOC: HO.HHCLNP 16:46
PROVIDERS: Visit Provider Family Medicine
DX: Z12.4 Encounter for screening for malignant neoplasm of cervix (principal); Z11.3 Encounter for screening for infections with a predominantly sexual mode of transmission; E78.5 Hyperlipidemia, unspecified; Z78.0 Asymptomatic menopausal state
CPT/HCPCS: 87491; 87591; 87626; 87661; 88175

== ENCOUNTER 2024-11-22 09:41 | Outpatient (REF) | payer MEDICAID, SELFPAY ==
--- OUTSIDE RECORDS SUMMARY | 2024-11-22 11:21 | XMS_ITS | Clinical Summary ---
Author Organization [employer] [facility] Address [address] [facility] 7[address] [place] [address] Care Team Providers Care Rn Transitional Care Name Role Phone Corina Perez MD Primary Care Provider [phone] Allergies Active Allergy Reactions Criticality Noted Date Comments Prednisone 06/07/2024 hypotension Medications sodium polystyrene sulfonate (Kayexalate) powderIndications: Hyperkalemia Take 15 grams by mouth daily for two days 30 g 5 Active lansoprazole (Prevacid SoluTab) 15 MG disintegrating tabletIndications: Gastroesophageal reflux disease, unspecified whether esophagitis present Take 1 tablet (15 mg) by mouth Once per day. Dissolve on tongue before swallowing particles; do not chew, cut, break, or swallow whole. 30 tablet 11 5 Active atorvastatin (Lipitor) 20 MG tabletIndications: Dyslipidemia Take 1 tablet (20 mg) by mouth Once per day. 90 tablet 3 5 026 Active Active Problems Problem Noted Date Diagnosed Date Dyslipidemia 08/15/2024 Overview (08/15/2024): Lab Results Component Value Date CHOL 230 (H) 07/26/2024 CHOL 229 (H) 06/14/2024 TRIG 131 07/26/2024 TRIG 121 06/14/2024 HDL 53 07/26/2024 HDL 56 06/14/2024 LDLCHOLCAL 151 (H) 07/26/2024 LDLCHOLCAL 149 (H) 06/14/2024 -continue lifestyle modification -atorvastatin 20mg started 08/2024 Assessment & Plan (08/15/2024 11:12 AM EDT): Lab Results Component Value Date CHOL 230 (H) 07/26/2024 CHOL 229 (H) 06/14/2024 TRIG 131 07/26/2024 TRIG 121 06/14/2024 HDL 53 07/26/2024 HDL 56 06/14/2024 LDLCHOLCAL 151 (H) 07/26/2024 LDLCHOLCAL 149 (H) 06/14/2024 -continue lifestyle modification -atorvastatin 20mg started 08/2024 Orders: Lipid Panel, Standard; Future Hepatic Function Panel; Future Referral to [facility]; Future atorvastatin (Lipitor) 20 MG tablet; Take 1 tablet (20 mg) by mouth Once per day. Other specified health status 06/07/2024 Overview (06/07/2024): -next comprehensive annual evaluation due after -eye care facilitated by -dental home encouraged 06/07/24 -josesito care proxy Assessment & Plan (06/07/2024 2:00 PM EDT): -next comprehensive annual evaluation due after -eye care facilitated by -dental home encouraged 06/07/24 -josesito care proxy Colon cancer screening 06/07/2024 Overview (08/10/2024): Moved from [place]. Had all medical care done there. Pt will bring records of previous colonoscopy. Done 2017. Assessment & Plan (06/07/2024 1:35 PM EDT): Moved from [place]. Had all medical care done there. Pt will bring records of previous colonoscopy. Breast cancer screening by mammogram 06/07/2024 Overview (08/10/2024): Moved from [place]. Had all medical care done there. Pt will bring records of previous mammogram's. -last per records done 2021 BIRADS-2 -ordered updated mammogram today 06/07/24 Assessment & Plan (08/15/2024 11:12 AM EDT): Moved from [place]. Had all medical care done there. Pt will bring records of previous mammogram's. -last per records done 2021 BIRADS-2 -ordered updated mammogram today 06/07/24 Assessment & Plan (06/07/2024 1:36 PM EDT): Moved from [place]. Had all medical care done there. Pt will bring records of previous mammogram's. -ordered updated mammogram today 06/07/24 History of kidney stones 06/07/2024 Overview (06/07/2024): Reports 8 months ago she had a renal crisis and had a kidney stone removed at [facility] in [place]. She has hx of kidney stones and another stone she had removed 10 years ago in [place]. Assessment & Plan (06/07/2024 1:46 PM EDT): Reports 8 months ago she had a renal crisis and had a kidney stone removed at hospital in [place]. She has hx of kidney stones and another stone she had removed 10 years ago in [place]. Papanicolaou smear for cervical cancer screening 06/07/2024 Overview (06/07/2024): Moved from [place]. Had all medical care done there. Pt will bring records of previous PAP smears. -will schedule for upcoming, updated PAP smear on 08/10/24 Assessment & Plan (08/15/2024 11:12 AM EDT): Orders: Pap Smear Assessment & Plan (06/07/2024 1:50 PM EDT): Moved from [place]. Had all medical care done there. Pt will bring records of previous PAP smears. -will schedule for upcoming, updated PAP smear on 08/10/24 Class 1 obesity due to exces s calories with body mass index (BMI) of 30.0 to 30.9 in adult 06/07/2024 Overview (08/10/2024): Pt moved from [place]. First time seeing a doctor in the [place]. Discussed weight, diet, exercise with patient in relation to health conditions. Used motivational interviewing to illicit change talk and established initial goals with patient. -Ordered routine labs 06/07/24. Elevated cholesterol, otherwise unremarkable. Assessment & Plan (08/15/2024 11:12 AM EDT): Assessment & Plan (06/07/2024 1:45 PM EDT): Pt moved from [place]. First time seeing a doctor [place] the [place]. -Ordered routine labs 06/07/24 Resolved Problems Problem Noted Date Diagnosed Date Resolved Date Dietary counseling 06/07/2024 Assessment & Plan (06/07/2024 1:46 PM EDT): Exercise Recommendations: At least 150 minutes of moderate-intensity physical activity per week, or an equivalent combination of moderate- and vigorous-intensity activity. Exercise counseling 06/07/2024 08/07/19 Assessment & Plan (06/07/2024 1:46 PM EDT): [...] Encounters Date Type Department Care Team Description 11/21/2024 Orders Only [facility] [address] [place] [id number] Corina Perez MD Dyslipidemia (Primary Dx) 09/20/2024 Telephone [facility] [address] [place] [address] Corina Perez MD Nurse Triage 09/13/2024 1:00 PM EDT Clinical Support [facility] [address] [place] [address] Brittnee Montana, SAMINA Encounter for immunization 09/13/2024 Travel 09/12/2024 Travel from Last 3 Months Immunizations Immunization Administration Dates Next Due HepB-CpG 09/13/2024 Pneumococcal Conjugate PCV 20 09/13/2024 Tdap 09/13/2024 Family History Medical History Relation Name Comments Prostate cancer Father heart surgery Father Relation Name Status Comments Father Social History Tobacco Use Types Packs/Day Years [...] Sign Reading Time Taken Comments Blood Pressure 136/92 08/10/2024 11:04 AM EDT Pulse 97 08/10/2024 11:04 AM EDT Temperature 37.2 C (98.9 F) 08/10/2024 11:04 AM EDT Respiratory Rate 18 08/10/2024 11:04 AM EDT Oxygen Saturation 97% 08/10/2024 11:04 AM EDT Inhaled Oxygen Concentration - - Weight 80.8 kg (178 lb 3.2 oz) 08/10/2024 11:04 AM EDT Height 161.3 cm (5' 3.5 ) 08/10/2024 11:04 AM ED T Body Mass Index 31.07 08/10/2024 11:04 AM EDT Plan of Treatment Upcoming Encounters Date Type Department Care Team (Late st Contact Info) Description 12/07/2024 1:00 PM EDT Office Visit [facility] OPTOMETRY [address] [place] [address] Tarka, Roro, OD [address] [place] [address] Health Maintenance Due Date Last Done Comments CT Colonography 1965 Depression Screening 1965 FIT DNA/Cologuard 1965 FIT 1965 FOBT 1965 SDOH Screening 1965 Sigmoidoscopy 1965 Alcohol/Substance Use Screening 1976 Zoster Vaccines (1 of 2) 2014 Hepatitis B Vaccines (2 of 2 - CpG 2-dose series) 10/11/2024 09/13/2024 COVID-19 Vaccine (1 - 2023-2 5 season) 2024 Influenza Vaccine (#1) 2024 Disability Screening 08/03/2025 08/03/2024 Tobacco Screening 08/10/2025 08/10/2024 Mammogram 08/02/2026 08/02/2024, 04/23/2021 Colonoscopy 10/29/2027 10/28/2017 Colorectal Cancer Screening 10/29/2027 Lipid Panel 07/26/2029 07/26/2024, 06/14/2024 Cervical Cancer Screening 08/10/2029 HPV/Cotest 08/10/2029 08/10/2024 Pap Smear 08/10/2029 08/10/2024 DTaP/Tdap/Td Vaccines (2 - T d or Tdap) 09/13/2034 09/13/2024 RSV Patients and Patients Aged 60 years or older (1 - 1-dose 75+ series) 12/09/2039 HIV Screening Completed 06/14/2024 Hepatitis C Screening Completed 06/14/2024 Pneumococcal Vaccine: 50+ Years Completed 09/13/2024 HIB Vaccines Aged Out No longer eligi [...] Procedure Name Priority Date/Time Associated Diagnosis Comments HPV DNA, LOW/HIGH RISK Routine 11:51 AM EDT Hyperkalemia PAP SMEAR Routine 08/10/2024 11:51 AM EDT Papanicolaou smear for cervical cancer screening BI MAMMOGRAM SCREENING TOMOSYNTHESIS BILATERAL Routine 08/02/2024 2:10 PM EDT Breast cancer screening by mammogram LIPID PANEL, STANDARD Routine 07/26/2024 9:21 AM EDT Elevated cholesterol HEPATITIS C AB W/REFL TO HCV RNA, QN, PCR Routine 06/14/2024 9:05 AM EDT Routine screening for STI (sexually transmitted infection) HIV 1/2 ANTIGEN/ANTIBODY, FOURTH GENERATION W/RFL Routine 06/14/2024 9:05 AM EDT Routine screening for STI (sexually transmitted infection) HM COLONOSCOPY Routine 10/28/2017 from Last 3 Months or Most Recently Relevant to Health Maintenance Results * HPV DNA, Low/High Risk (08/10/2024 11:51 AM EDT) HPV High Risk Negative Negative [facility] HPV Genotype 16 Negative Negative [facility] HPV Genotype 18 Negative Negative [facility] Comment:HPV testing performe d at [facility] (CLIA#[id number]), [address] [place] [address].Testing for HPV was performed using the [employer] MOHSEN 6800system. The presence of HPV in the female genital tract isassociated with a number of diseases, including cervicalcarcinoma. The HPV DNA high risk pool tests for HPV 31, 33,35, 39, 45, 51, 52, 56, 58, 59, 66 and 68. The testing forHPV 16 and 18 genotypes has also been performed. A positiveresult indicates detection of nucleic acid sequences fromone or more subtypes, whereas a negative result indicatessuch sequences were not detected. 08/10/2024 11:5 1 AM EDT 08/13/2024 7:59 AM EDT us Corina Perez MD LAB BLOOD ORDERABLES Final Result [facility] [address] [place] [phone] * Pap Smear (08/10/2024 11:51 AM EDT) Swab 08/10/2024 11:5 1 AM EDT 08/13/2024 7:59 AM EDT [facility] - 08/15/2024 9:17 AM EDT ----- ------- Name: Lesli Logan Age/Sex: 58/F : 1965 Unit#: [id number] Attend Dr: Corina Perez MD Re08/10/24 Status: DEP [facility] Disch: ----- ------- SPEC : [id number] RECD: 08/13/24 STATUS: BARBARA AGUILAR NUM: [id number] ARISTEO: 08/10/24-1151 [facility] DR: Corina Perez MD ENTERED: 08/13/24 SP TYPE: Pap Smr OTHR DR: ORDERED: Pap Smear Interpretation Satisfactory for evaluation. Negative for intraepithelial lesion or malignancy. HPV High Risk: Negative HPV Genotyping 16: Negative HPV Genotyping 18: Negative Clinical Information LMP: Post Menopausal Previous PAP test: 5 years ago, WNL Other history: Papanicolaou smear for cervical cancer screening Material Received ThinPrep-Cervical PAP Disclaimer As of December 28, 2023, the technical services to include automated prescreening performed by the ThinPrep Imaging System, PAP screening and HPV testing will be performed at [facility] (CLIA #[id number]), [address] [place], [place] [address]. Testing for HPV was performed using the [employer] MOHSEN 6800 system. The presence of HPV in the female genital tract is associated with a number of diseases, including cervical carcinoma. The HPV DNA high risk pool tests for HPV 31, 33, 35, 39, 45, 51, 52, 56, 58, 59, 66 and 68. The testing for HPV 16 and 18 genotypes has also been performed. A positive result indicates detection of nucleic acid sequences from one or more subtypes, whereas a negative result indicates such sequences were not detected. All professional services are performed by [facility] ([address] [place] [address]; ; CLIA #[id number]). The PAP Test is a screening procedure with the inherent possibility of both false negative and false positive results. Results should be interpreted in the context of historic and current clinical findings. Reliability of the PAP Test is enhanced by performing the test on a regular repetitive basis. ----- ------- Signed (signature on file) ADRI Du (ASCP) 08/15/24 0917 ----- ------- END OF REPORT us Corina Perez MD LAB CYTOLOGY ORDERABLES Fi nal Result [facility] [address] [place] [address] [phone] * BI Mammogram Screening Tomosynthesis Bilateral (08/02/2024 2:10 PM EDT) Anatomical Region Laterality Modality Breast Bilateral Mammography 08/02/2024 2:10 PM EDT Narrative 08/10/2024 9:45 AM EDT [facility] [address] [place] [address] Mammography Report Signed Patient: Lesli Logan MR#: [id number] : 1965 Acct:[id number] Age/Sex: 58 / F ADM Date: 08/02/24 Loc: HO.MAMMO Attending Dr: Corina Perez MD Ordering Physician: Corina Perez MD Results: 2B enign Findings Date of Service: 08/02/24 Follow Up: 1 Year From Orig inal Mammogram Procedure(s): MM tomosynthesis screening BI Accession Number(s): [id number] cc: Corina Perez MD; Sandy Montoya DO EXAMINATION: MM SCREENING DIGITAL BREAST TOMOSYNTHESIS, BILATERAL CLINICAL INFORMATION: Screening. Asymptomatic. COMPARISON: Mammography: Baseline. TECHNIQUE: Digital breast mammography with tomosynthesis is performed in both the craniocaudal and mediolateral oblique views along with computer-aided detection (CAD). FINDINGS: There are scattered areas of fibroglandular density (ACR BI-RADS breast composition Category b). Left marker clip. There are no significant masses, abnormal calcifications, or other abnormalities. MM/MM tomosynthesis screening BI IMPRESSION: No mammographic evidence of malignancy. ASSESSMENT: BI-RADS BI-RADS 2 - Benign Findings RECOMMENDATION: Routine annual mammography screening. 1 year F/U This examination should not preclude the clinical evaluation of a suspicious palpable abnormality. This patient's information was entered into a reminder system with a target due date for their next mammogram. Electronically signed by: Cristin Carr DO 08/10/2024 09:42 AM EDT Dictated By: Cristin Carr DO Signed By: <Electronically signed by Cristin Carr DO in OV> 08/10/2442 DD/ 1410 TD/TT: 08/02/24 1430 Celebrity Chef Ent[employer]ur Media Personality: Procedure Note Donotuseinterpreter, Image - [facility] [address] [place], [place] [address] Mammography Report Signed Patient: Lesli LoganMR#: [id number] : 1965Acct:[id number] Age/Sex: 58 / FADM Date: 08/02/24 Loc: HO.MAMMO Attending Dr: Corina Perez MD Ordering Physician: Corina Perez MDResults: 2B enign Findings Date of Service: 08/02/24Follow Up: 1 Year From Orig ina Mammogram Procedure(s): MM tomosynthesis screening BI Accession Number(s): [id number] cc: Corina Perez MD; Sandy Montoya DO EXAMINATION: MM SCREENING DIGITAL BREAST TOMOSYNTHESIS, BILATERAL CLINICAL INFORMATION: Screening. Asymptomatic. COMPARISON: Mammography: Baseline. TECHNIQUE: Digital breast mammography with tomosynthesis is performed in both the craniocaudal and mediolateral oblique views along with computer-aided detection (CAD). FINDINGS: There are scattered areas of fibroglandular density (ACR BI-RADS breast composition Category b). Left marker clip. There are no significant masses, abnormal calcifications, or other abnormalities. MM/MM tomosynthesis screening BI IMPRESSION: No mammographic evidence of malignancy. ASSESSMENT: BI-RADS BI-RADS 2 - Benign Findings RECOMMENDATION: Routine annual mammography screening. 1 year F/U This examination should not preclude the clinical evaluation of a suspicious palpable abnormality. This patient's information was entered into a reminder system with a target due date for their next mammogram. Electronically signed by: Cristin Carr DO 08/10/2024 09:42 AM EDT Dictated By: Cristin Carr DO Signed By: <Electronically signed by Cristin Carr DO in OV> 08/10/2442 DD/ 1410 TD/TT: 08/02/24 1430 Celebrity Chef Entrepreneur Media Personality: Corina Perez MD IMG BI PROCEDURES Edited R esult - Final * (ABNORMAL) Lipid Panel, Standard (07/26/2024 9:21 AM EDT) Triglycerides 131 <150 mg/dL [facility] Comment:Desirable Triglyceri de: less than 150 mg/dLBorderline High Triglyceride 150-199 mg/dLHigh Triglyceride: 200-499 mg/dLVery High Triglyceride: greater than or equal to 5OO mg/dL Cholesterol 230(H) <200 mg/dL [facility] Comment:Desirable Cholestero l: less than 200 mg/dLBorderline High Cholesterol: 200-239 mg/dLHigh Cholesterol: greater than 239 mg/dL LDL Cholesterol Calculated 151(H) <100 mg/dL [facility] Comment:Desirable LDL: less than 100 mg/dLNear Optimal/Above Optimal LDL: 110- 129 mg/dLBorderline High LDL: 130-159 mg/dLHigh LDL: 160-189 mg/dLVery High LDL: greater than or equal to 190 mg/dL HDL Cholesterol 53 >40 mg/dL [facility] Comment:Desirable HDL: great er than 40 mg/dL Note: This HDL assay may give artificially low results in patients with liver disease. Blood Venous blood specimen / Unknown 07/26/2024 9:21 AM EDT 07/26/2024 11:04 AM EDT Corina Perez MD LAB BLOOD ORDERABLES Final Result [facility] [address] [place] [address] [phone] * Hepatitis C Antibody with Reflex to HCV, RNA, Quantitative, Real-Time PCR (06/14/2024 9:05 AM EDT) Hepatitis C Antibody Nonreactive Nonreactive [facility] Comment:Antibodies to HCV no t detected; does not exclude early acuteHCV infection. Blood Venous blood specimen / Unknown 06/14/2024 9:05 AM EDT 06/14/2024 11:34 AM EDT Corina Perez MD LAB BLOOD ORDERABLES Final Result Performing Organization Address [facility]/ZIP Co de Phone Number [facility] [address] [place] [phone] * HIV-1/2 Antigen and Antibodies, Fourth Generation, with Reflexes (06/14/2024 9:05 AM EDT) HIV AB/AG Nonreactive Nonreactive [facility] Comment:HIV-1 p24 Ag and/or HIV-1/HIV-2 Ab not detected.A test result that is nonreactive does not exclude thepossibility of exposure to or infection with HIV-1 and/orHIV-2. Nonreactive results in this assay for individualswith prior exposure to HIV-1 and/or HIV-2 may be due toantigen and antibody levels that are below the limit ofdetection of this assay.The [employer] HIV Ag/Ab Combo assay result andsupplemental assay results should be interpreted inconjunction with the patient's clinical presentation,history and other laboratory results. If the results areinconsistent with clinical evidence, additional testing issuggested to confirm the result. Blood Venous blood specimen / Unknown 06/14/2024 9:05 AM EDT 06/14/2024 11:34 AM EDT Corina Perez MD LAB BLOOD ORDERABLES Final Result Performing Organization Address City/[facility]/ZIP Co de Phone Number [facility] [address] [place] [phone] * Hm Colonoscopy (10/28/2017) Colonoscopy Normal Normal Comment:Normal in [place], co py in chart under media Linda Nichols MD HEALTH MAINTENANCE Final Result from Last 3 Months or Most Recently Relevant to Health Maintenance Insurance [employer] HSN FULL Advance Directives Documents on File Type Date Recorded Patient Group Cio Expl anation Advance Directives and Living Will 08/14/2024 Health Care Proxy 08/09/24 Care Teams Rn Transitional Care Relationship Specialty Start Date End Date Corina Perez MD [address] [place] [phone] PCP - General Family Medicine 06/07/24
--- OUTSIDE RECORDS SUMMARY | 2024-11-22 11:21 | XMS_ITS | Encounter Summary ---
Author Organization [employer] [facility] Address [address] [facility] [address] [place] [address] Care Team Providers Care Telegraph Service Clerk Name Role Phone Corina Perez MD Primary Care Provider [phone]- [phone] Encounter Details Date Type Department Care Team (Late st Contact Info) Description 11/21/[address] [facility] [address] [place], [place] [phone] Corina Perez MD [address] [place], [place] [phone] Dyslipidemia (Primary Dx) Social History Tobacco Use Types Packs/Day Years Used Date Smoking Tobacco: Never Passive Smoke Exposure: Never Smokeless Tobacco: Never Comments Unknown Sex and Gender Information Value Date Recorded Sex Assigned at Female 06/07/2024 12:55 PM EDT Legal Sex Female 12:39 PM EDT Gender Identity Female 06/07/2024 12:55 PM EDT Sexual Orientation Straight 06/07/2024 12 :55 PM EDT documented as of this encounter Plan of Treatment Upcoming Encounters Date Type Department Care Team (Late st Contact Info) Description 12/07/2024 1:00 PM EDT Office Visit [facility] OPTOMETRY [address] [place] [address] TarkaRoro, OD [address] [place] [address] Scheduled Orders Name Type Priority Associated Diagnoses Orde r Schedule Lipid Panel, Standard Lab Routine Dyslipidemia Expected: 11/21/2024 (Approximate), Expires: 11/21/2025 Hepatic Function Panel Lab Routine Dyslipidemia Expected: 11/21/2024 (Approximate), Expires: 11/21/2025 documented as of this encounter Visit Diagnoses Diagnosis Dyslipidemia- Primary Other and unspecified hyperlipidemia documented in this encounter Care Teams Telegraph Service Clerk Relationship Specialty Start Date End Date Corina Perez MD [address] [place] [phone] PCP - General Family Medicine 06/07/24 documented as of this encounter
[2024-11-22 12:09] LABS: Alanine Aminotransferase 23 U/L (0-31); Albumin Level 4.6 g/dL (3.5-5.0); Alkaline Phosphatase 107 U/L (39-117); Aspartate Amino Transferase 29 U/L (5-31); Cholesterol 167 mg/dL (<200); HDL Cholesterol 43 mg/dL (>40); Total Protein 7.4 g/dL (6.5-8.0); Triglycerides 119 mg/dL (<150)
== END 2024-11-22 09:42 | disposition home or self-care (01) ==
LOC: HO.HHCL 09:41
PROVIDERS: PCP Family Medicine; Visit Provider Family Medicine
DX: E78.5 Hyperlipidemia, unspecified (principal)
CPT/HCPCS: 36415; 80061; 80076